=== PATIENT | male | born 1960 | race Caucasian/White ===

== ENCOUNTER 2016-11-28 07:29 | Emergency (ER) | payer MEDICARE ==
[~2016-11-28] VITALS: Ht 177.8 cm; Wt 154.6 kg
[2016-11-28 07:32] VITALS: BP 146/100; PULSE 78; RESP 20; O2SAT 99
--- NOTE | 2016-11-28 07:43 | ED.REPORT ---
HPI-General Illness Date of Service Nov 28, 2016 ED Provider: Pravin Cline MD This is a 56-year-old male with history of MT in 2012, hypertension, CAD, who presents to the emergency department for abdominal pain. Abdominal pain is "knife pain" sensation occurring 3-5 times per day in the left lower quadrant without radiation ongoing for the last week. The pain is currently 5 out of 10 but at its worst is 10 out of 10. It is not brought on by any specific activity. Patient notes he tried a liquid diet for 3 days without any help. He does note a history of diverticulitis 10 years ago but mentioned it does not feel like it. Patient does note he has been unable to pass bowel movement for about a week. He did use milk of magnesia 1.5 weeks ago and was able to pass bowel movement but has been unable to since then. He also notes some testicular pain and feels like his testicles are "squished." He had a subjective fever last night as well as chills. He has had nausea with vomiting 2 days ago. He also notes a stable chest pain for the last 3 years since his heart attack as well as shortness of breath with walking unchanged from baseline. He has not had a colonoscopy. Denies any blood in his stool. Patient notes urinary frequency after having liquid diet but denies dysuria or urgency. Nursing Notes Stated Complaint: SEVERE ABD PAIN Chief Complaint: Male Abdominal Pain Nursing Notes Reviewed: Yes Allergies: Coded Allergies: No Known Allergies (Unverified , 11/28/16) Scheduled Ciprofloxacin (Ciprofloxacin) 500 Mg Tablet 500 MG PO BID Metronidazole (Flagyl) 500 Mg Tablet 500 MG PO Q8H General Time Seen by MD: 07:42 Chief Complaint Abdominal pain Hx Obtained From: Patient Past Medical History Past Medical History Diverticulitis 2007 MT 2012 CAD Hypertension Hyperlipidemia Past Surgical History Appendectomy Back surgery 2 Smoking History Never Smoker Social History Alcohol Use: Denies alcohol use Drug Use: Denies drug use Review of Systems Full Review of Systems Constitutional: Reports: Chills, Fever Respiratory: Reports: Shortness of breath Cardiovascular: Reports: Chest pain GI: Reports: Abdominal pain, Constipation, Nausea, Vomiting, Denies: Diarrhea, Hematemesis, Hematochezia, Melena Male: Reports Testicular pain, Reports Urinary frequency, Denies Dysuria, Denies Urinary urgency Musculoskeletal: Reports: Back pain (chronic, unchanged) Complete sys rev & neg: except as marked. Physical Exam Vital Signs Vital Signs Date Time Temp Pulse Resp B/P Pulse Ox O2 Delivery O2 Flow Rate FiO2 11/28/16 12:31 36.2 58 16 97/65 97 Room Air 11/28/16 07:32 36.7 78 20 146/100 99 Room Air Initial VS: Reviewed Back: No CVA tenderness Extremities: Vascular intact, Neuro intact, No swelling Skin: Warm, Dry Neurologic: Alert, Oriented Psychiatric: Mood/affect normal, Behavior normal, Normal thought content General/Constitutional: Awake, Alert, No acute distress, Cooperative Appearance / Presentation: Positive: Obese Respiratory / Chest: Breath sounds NL, Breath sounds = bilat, No respiratory distress Cardiovascular: Heart rate NL, Regular rhythm Distant heart sounds secondary to body habitus, so difficult to appreciate for murmurs Abdomen: Soft, No guarding, BS normoactive, No hernia, No palpable mass Tenderness/Guarding/Rebound: Positive: Tender LLQ... (Moderate) Bowel Sounds / Distention: Positive: Bowel sounds absent Male Genitourinary: Atraumatic, Inspection NL, Penis NL, No penile discharge, Testes NL, Epididymis NL, No hernia Interpretation & Diagnostics Lab Results Interpretation Result Diagram: 11/28/16 0825 11/28/16 0825 Test 11/28/16 08:25 White Blood Count 12.5th/mm3 (3.8-10.1) Red Blood Count 4.80mil/mm3 (4.40-5.80) Hemoglobin 13.8g/dL (13.8-17.2) Hematocrit 41.0% (41.0-50.0) Mean Corpuscular Volume 85.4fL (81-100) Mean Corpuscular Hemoglobin 28.8pg (27.0-35.0) Mean Corpuscular Hemoglobin Concent 33.7% (32.0-37.0) Red Cell Distribution Width 13.2% (12.3-15.4) Platelet Count 288bil/L (150-400) Neutrophils (%) (Auto) 65.9% (40-74) Lymphocytes (%) (Auto) 20.4% (14-46) Monocytes (%) (Auto) 10.5% (4-12) Eosinophils (%) (Auto) 2.7% (0-5) Basophils (%) (Auto) 0.3% (0-3) Prothrombin Time 10.8sec (8.1-12.5) Prothromb Time International Ratio 1.01ratio Sodium Level 138mEq/L (134-144) Potassium Level 4.3mEq/L (3.5-5.2) Chloride Level 101mEq/L (97-108) Carbon Dioxide Level 21mmol/L (18-29) Blood Urea Nitrogen 12mg/dL (6-24) Creatinine 0.77mg/dL (0.76-1.27) Estimat Glomerular Filtration Rate 111mL/min (>59) Glucose Level 132mg/dL (60-99) Lactic Acid Level 1.2mmol/L (0.4-2.0) Calcium Level 9.0mg/dL (8.5-10.1) Magnesium Level 2.1mg/dL (1.6-2.6) Total Bilirubin 0.8mg/dL (0.0-1.2) Aspartate Amino Transf (AST/SGOT) 24U/L (0-50) Alanine Aminotransferase (ALT/SGPT) 22U/L (0-44) Alkaline Phosphatase 75U/L (25-150) Troponin T 0.010ug/L (0.0-0.011) Total Protein 7.3g/dL (6.4-8.4) Albumin 3.9g/dL (3.4-5.0) Lipase 21U/L (13-60) CT Abd / Pelvis Interpretation IMPRESSION: 1. Sigmoid diverticulitis with mild reactive free fluid in the pelvis. No abscess or bowel obstruction is evident. When the patient's acute symptoms have resolved, colonoscopy would be helpful to exclude the possibility of an underlying mass. 2. Mild prominence of the urinary bladder wall is felt to be reactive to the acute inflammatory process involving the colon. 3. Hepatic steatosis. 4. Nonobstructing inferior left renal calculus. 5. Degenerative changes of the lumbosacral spine and hips. 6. Fat-containing left internal hernia. Re-Eval/Medical Decision Med Decision/Clinical Course In summary, this is a 56-year-old male with a PMHx notable for diverticulitis, MT with stent in 2012 and hypertension, who presents to the ED for evaluation of abdominal pain associated with some nausea and vomiting over the past one week. DDx broad and includes SBO, cholecystitis/biliary colic, pancreatitis, nephrolithiasis/renal colic, IBD, intraabdominal mass/abscess, gastroenteritis, diverticulitis, mesenteric ischemia, hernia, AAA, ACS. Upon arrival to the ED, patient hemodynamically stable, vitals grossly within normal limits with the exception of mild hypertension. Orders were placed for Zofran and hydromorphone as needed but patient did not require any medications. Initial workup and labs as per above, notable for a lactate of 1.2, negative troponin, leukocytosis of 12.5. EKG demonstrates sinus rhythm w/ no evidence of acute ischemic changes. CT abd/pelvis demonstrates diverticulitis with a small amount of free fluid, however no evidence of perforation, abscess, or other complication. There were several incidental findings noted on the CT scan read above; these were discussed with the patient, including need for close outpatient follow-up. Upon reassessment, patient endorses feeling somewhat better and after discussing inpatient versus outpatient management of his diverticulitis, the patient opted for the latter. Given otherwise reassuring workup and patient's preference, seems reasonable to discharge the patient home with close PCP f/u, very careful return precautions, and repeat examination within 24-48 hours. Patient verbalized understanding and agreement with the plan as stated, denied further questions. He was discharged with ciprofloxacin and Flagyl. Counseled Regarding: Diagnosis, Lab results, Need for follow-up, When/why to return to ED Discharge & Departure Primary Impression: Diverticulitis Diverticulitis site: large intestine Diverticulitis bleeding: without bleeding Diverticulitis complication: without perforation or abscess Qualified Code: K57.32 - Diverticulitis of large intestine without perforation or abscess without bleeding Disposition: Home Discharge Condition All VS Reviewed: Yes Condition: Stable Patient Instructions: Diverticulitis (ED), Diverticulitis Diet (ED) Additional Instructions: On abdominal CT scan, there is evidence of diverticulitis. You also do have a mildly elevated white blood count which may be related. We have prescribed for use ciprofloxacin and metronidazole (flagyl) to help with her diverticulitis. You need close outpatient follow-up with their primary care provider for this. It is recommended to see them within 48 hours. If he starts to develop any fevers, excessive vomiting, significant diarrhea or severe abdominal pain, return to the emergency department. Referrals: Jesu Chopra MD (PCP) copies to: Jesu Chopra MD, William B MD Nov 28, 2016 07:43 Heraclio George DO Nov 28, 2016 08:09
[2016-11-28] MEDS ORDERED: 0.9% Sodium Chloride 1,000 ML IV ONE (08:02)
[2016-11-28] MEDS ORDERED: Ondansetron 2 mg/mL 2 mL Inj IVPUSH PRN (08:05)
[2016-11-28 08:36] LABS: BASOPHILS % (AUTO) 0.3 % (0-3); EOSINOPHILS % (AUTO) 2.7 % (0-5); MONOCYTES % (AUTO) 10.5 % (4-12); Mean Corpuscular Hemoglobin 28.8 pg (27.0-35.0); Mean Corpuscular Volume 85.4 fL (81-100); NEUTROPHILS % (AUTO) 65.9 % (40-74); Platelet Count 288 bil/L (150-400)
[2016-11-28] MEDS: HYDROmorphone 0.5 mg/0.5 mL iSecure Syringe IVPUSH PRN ×2 (08:38→10:06)
[2016-11-28 08:58] LABS: TROPONIN T 0.01 ug/L (0.0-0.011)
[2016-11-28 09:07] LABS: INR 1.01 ratio
[2016-11-28 09:09] LABS: Magnesium 2.1 mg/dL (1.6-2.6)
--- NOTE | 2016-11-28 10:53 | DRSVH ---
PROCEDURE: CT ABDOMEN AND PELVIS WITH CONTRAST ([id number]) INDICATIONS: severe abdominal pain; of note, hx diverticulitis TECHNIQUE: After the administration of oral and intravenous contrast, 5 mm thick sections acquired from the diap hragms to the symphysis. 5 mm thick coronal and sagittal reformats were performed. For radiation do se reduction, the following was used: automated exposure control, adjustment of mA and/or kV accordi ng to patient size. COMPARISON: None. FINDINGS: Image quality: Diagnostic. ABDOMEN: Lung bases: Lung bases are clear. Heart size is normal. Solid organs: The liver is hypodense when compared to the spleen. The gallbladder is not enlarged or inflamed. The spleen, adrenals, and pancreas are within normal limits. The kidneys are normal in s ize without hydronephrosis. There is a 3 mm nonobstructing inferior left renal calculus. No perinep hric stranding is identified. A simple appearing exophytic cyst along the superior pole of the left kidney is noted. Peritoneum and bowel: There may be a very small hiatal hernia. Otherwise, stomach, duodenum, and rem ainder of the small bowel loops are nondilated. The appendix appears to have been surgically removed . Stool is identified throughout the colon. Extensive distal colonic diverticulosis is present. Th ere is prominent thickening of the wall of the sigmoid colon with surrounding inflammation evident wi thin the left lower quadrant. A small amount of reactive free fluid is identified. However, there i s no loculated fluid collection or free air evident. Nodes and vessels: No retroperitoneal or mesenteric adenopathy. Aorta and inferior vena cava are no rmal in caliber. There is mild aortic atherosclerosis. Bones: Moderate degenerative changes of the lumbar spine are present. There is grade 1 retrolisthesi s L2 on L3. There is at least a unilateral right L5 pars defect. No suspicious osseous lesions or a cute fractures are identified. PELVIS: Genitourinary: Mild prominence of the urinary bladder wall is incidentally noted, particularly along the left superior portion of the bladder. The prostate is not enlarged. Miscellaneous: There is a small fat containing left internal hernia. No pelvic lymphadenopathy is id entified. A small amount of free fluid is seen within the pelvis. There is no loculated fluid colle ction. Bones: No suspicious bony lesions. No acute pelvic fractures are evident there are mild degenerativ e changes of the right hip and bilateral sacroiliac joints. IMPRESSION: 1. Sigmoid diverticulitis with mild reactive free fluid in the pelvis. No abscess or bowel obstruct ion is evident. When the patient's acute symptoms have resolved, colonoscopy would be helpful to exc lude the possibility of an underlying mass. 2. Mild prominence of the urinary bladder wall is felt to be reactive to the acute inflammatory proc ess involving the colon. 3. Hepatic steatosis. 4. Nonobstructing inferior left renal calculus. 5. Degenerative changes of the lumbosacral spine and hips. 6. Fat-containing left internal hernia. Dictated by: Dov Hamilton M.D. on 11/28/2016 at 9:46 Approved by: Dov Hamilton M.D. on 11/28/2016 at 9:51
[2016-11-28] MEDS ORDERED: METR500T PO (12:28)
[2016-11-28] MEDS ORDERED: CIPR-198 PO (12:28)
[2016-11-28 12:31] VITALS: BP 97/65; PULSE 58; RESP 16; O2SAT 97
== END 2016-11-28 13:18 | disposition home or self-care (01) ==
LOC: SED 07:29
DX: K57.32 Diverticulitis of large intestine without perforation or abscess without bleeding (principal); I25.2 Old myocardial infarction; I10 Essential (primary) hypertension; E78.5 Hyperlipidemia, unspecified; Z86.79 Personal history of other diseases of the circulatory system
CPT/HCPCS: 36415; 74177; 80053; 83605; 83690; 83735; 84484; 85025; 85610; 93005; 96361; 96374; 96375; 99285; J1170; J2405; J7030; Q9967